=== PATIENT | female | born 1950 | race Caucasian/White ===

== ENCOUNTER 2022-04-19 10:02 | Outpatient (REF) | payer MEDICARE, MEDICAID, SELFPAY ==
[2022-05-16 09:06] LABS: Fungus Smear No Fungi Seen
== END 2022-04-19 10:03 | disposition home or self-care (01) ==
LOC: LBN 10:02
PROVIDERS: PCP Nurse Practitioner Family; Visit Provider Student in an Organized Health Care Education/Training Program
DX: R93.89 Abnormal findings on diagnostic imaging of other specified body structures (principal); R91.1 Solitary pulmonary nodule; R06.02 Shortness of breath; J43.8 Other emphysema; J06.9 Acute upper respiratory infection, unspecified
CPT/HCPCS: 87102; 87116; 87206; 87070; 87205

== ENCOUNTER 2022-04-20 14:46 | Outpatient (REF) | payer MEDICARE, SELFPAY | END 2022-04-20 14:47 | disposition home or self-care (01) | LOC: LBN 14:46 | PROVIDERS: PCP Nurse Practitioner Family; Visit Provider Student in an Organized Health Care Education/Training Program | DX: R93.89 Abnormal findings on diagnostic imaging of other specified body structures (principal); J06.9 Acute upper respiratory infection, unspecified; J98.4 Other disorders of lung | CPT/HCPCS: 87116; 87206 ==

== ENCOUNTER 2022-04-24 01:52 | Outpatient (CLI) | payer MEDICARE, MEDICAID, SELFPAY ==
--- NOTE | 2022-04-24 07:15 | DI.CT_ITS ---
Exam(s) CT CHEST WO EXAM: CT CHEST WO CLINICAL HISTORY: f/u nodular infiltrates,PULMONARY NODULES,R91.8 TECHNIQUE: Imaging Protocol: Axial computed tomography images with coronal and sagittal reformatted images were created and reviewed CONTRAST MATERIAL: Intravenous: Omnipaque 350 Contrast volume:structured data ml. COMPARISON: CT CT CHEST WO CNTRST from 12/15/2021 FINDINGS: Pulmonary parenchyma: Mild emphysematous changes. Mild peripheral basal scarring. Scarring lingula, adjacent to heart. No consolidation. No dominant measurable mass. Tracheobronchial tree: No bronchiectasis or mucous plugging. Mediastinum and Carin: No dominant adenopathy or fluid collection. Pleura: No effusion or pneumothorax. Heart: The heart is not dilated. coronary artery calcifications are seen. Aorta: Thoracic aorta non-dilated. Atherosclerotic changes. Upper abdomen: Unremarkable. Bones: Degenerative changes. Soft tissues: Unremarkable. IMPRESSION: No infiltrates or suspicious pulmonary nodules identified. RADIATION DOSE DELIVERED: 364.58mGy.cm Total DLP DATA REPOSITORY: All CT scans at this facility are submitted to the National Radiology Data Registry (NRDR) Dose Index Registry (DIR) with the [employer] (ACR). RADIATION OPTIMIZATION: All CT scans at this facility use at least one of these dose optimization te chniques: automated exposure control; mA and/or kV adjustment per patient size (includes targeted exa ms where dose is matched to clinical indication); or iterative reconstruction.
== END 2022-04-24 02:12 ==
LOC: DI 01:53
PROVIDERS: PCP Nurse Practitioner Family; Visit Provider Student in an Organized Health Care Education/Training Program
DX: R91.8 Other nonspecific abnormal finding of lung field (principal); J43.8 Other emphysema; J98.4 Other disorders of lung
CPT/HCPCS: 71250; 94060; 94726; 94729

== ENCOUNTER 2022-04-24 04:21 | Outpatient (CLI) | payer MEDICARE, MEDICAID, SELFPAY ==
[2022-04-24] MEDS: Inhaler, Assist Device 1 EACH MC (11:09)
[2022-04-24] MEDS: Albuterol HFA 18 GM 200 PUFF INH IH (11:09)
--- NOTE | 2022-04-24 12:00 | W.PFT ---
Date of service: 04/24/22 Time of Service: 10:08 Pulmonary Function Test Result Requesting Provider [place] Indications: Dyspnea Interpretation Spirometry: There is severe airflow limitation. There is no significant bronchodilator response. Lung Volumes: There is air trapping Diffusion Capacity: There is a significantly decreased diffusion Airway Pressure: Increased airways resistance. Impression Severe airflow obstruction with air trapping and a decreased diffusion. Clinical Correlation therefore is recommended.
== END 2022-04-24 04:22 | disposition home or self-care (01) ==
LOC: RT 04:21
PROVIDERS: PCP Nurse Practitioner Family; Visit Provider Student in an Organized Health Care Education/Training Program
DX: R06.02 Shortness of breath (principal)
CPT/HCPCS: 94060; 94726; 94729

== ENCOUNTER → 2022-12-20 13:41 | Outpatient (BNVA) | payer MEDICARE, MEDICAID, SELFPAY | PROVIDERS: PCP Nurse Practitioner Family; Referring Provider Nurse Practitioner Family; Visit Provider Physician Assistant Surgical | DX: J44.9 Chronic obstructive pulmonary disease, unspecified (principal); Z79.51 Long term (current) use of inhaled steroids; I27.20 Pulmonary hypertension, unspecified; Z87.891 Personal history of nicotine dependence; J96.91 Respiratory failure, unspecified with hypoxia | CPT/HCPCS: 99214 ==

== ENCOUNTER → 2023-01-12 00:08 | Outpatient (CLI) | payer MEDICARE, MEDICAID, SELFPAY ==
--- NOTE | 2023-01-12 16:05 | DI.US_ITS ---
APPROVED REPORT EXAM: Comprehensive 2D, Doppler, and color-flow Echocardiogram Patient Location: Out-Patient Funeral Director/Embalmer/Owner: Shari Martinez RDCS (AE) Indications: Increased SOB, edema, Pulmonary HTN Other Information Study Quality: Adequate. Technically limited study due to body habitus. Conclusion Normal left ventricular wall thickness and chamber size. Ejection fraction is 50 to 55%. There are no segmental wall motion abnormalities Normal right ventricular size and systolic function Atria are normal in size. The atrial septum is thin and hypermobile There is no structural or hemodynamically significant valvular disease Estimated right ventricular systolic pressure is 35 mmHg Wall motion Left Ventricle The left ventricle is normal size. Left ventricular systolic function is lborderline normal. There is normal left ventricular wall thickness. There is normal LV segmental wall motion. There is no ventri cular septal defect visualized. LVEF is 52%. Right Ventricle The right ventricle is normal size. The right ventricular systolic function is normal. Atria The left atrium size is normal. The right atrium size is normal. Atrial septal aneurysm is present. Aortic Valve The aortic valve is normal in structure. Aortic valve is trileaflet. There is no aortic valvular sten osis. No aortic regurgitation is present. Mitral Valve The mitral valve is normal in structure. No evidence of mitral valve stenosis. Trace mitral regurgita tion. Tricuspid Valve The tricuspid valve is normal in structure. There is no tricuspid valve stenosis. Trace tricuspid reg urgitation. The RVSP is 35.3mmHg. Pulmonic Valve The pulmonary valve is normal in structure. There is no pulmonic valvular stenosis. Trace pulmonic re gurgitation. Great Vessels The aortic root is normal in size. The ascending aorta is normal in size. Aortic arch is not well vis ualized. IVC is normal in size and collapses >50% with inspiration. Pericardium Trace pericardial effusion. 2D Dimensions IVSD d PLAX 0.67 cm F: 0.6-1.0 Ao Root d 2.83 cm F: 2.7 - 3.3 LVPW d PLAX 0.68 cm F: 0.6 - 1.0 Ao Asc Diam d 2.85 cm F: 2.3 - 3.1 LVID d PLAX 4.51 cm F: 3.8 - 5.2 LVDs 3.25 cm F: 2.2 - 3.5 LV EF Teichholz 54.4 % FS 28.04 % LV EDV (Teich) 92.9 mL LV ESV (Teich) 42.4 mL M-Mode TAPSE 2.36 cm (M/F) >1.7 Auto EF LV EDV A4C 71.6 mL LV EDV A2C 89.5 mL LV EDV BP 80.6 mL LV ESV A4C 37.6 mL LV ESV A2C 44.8 mL LV ESV BP 40.3 mL LVEF(%) A4C 47.5 % LVEF(%) A2C 49.9 % LVEF(%) BP 50.0 % LV SV A4C 34.0 ml LV SV A2C 44.6 ml LV SV BP 40.3 ml LV CO A4C 2.4 L/min LV CO A2C 3.3 L/min LV CO BP 2.8 L/min HR A4C 70.18 BPM HR A2C 73.59 BPM LV EDV Index (BP) LV Strain Long Pk Overal Avg (s) 15.01 LA Volume LA Length A4C 4.8 cm LA Length A2C 4.8 cm LA Area A4C s 13.06 cm2 LA Area A2C s 17.24 cm2 LA Vol A4C A-L 29.97 mL LA Vol A2C A-L 52.90 mL LA Vol Biplane A-L 40.1 mL LA Vol/BSA A4C A-L LA Vol/BSA A2C A-L LA Vol/BSA BP A-L 24.3 mL/m2 LA Vol A4C MOD 28.4 mL LA Vol A2C MOD 50.0 mL LA Vol BP MOD 37.6 mL RA Volume RA Area A4C 13.0 cm2 RA ESV A4C (A-L) 31.6mL RA Vol/BSA A4C A-L RA Length A4C 4.6 cm RA ESV A4C (MOD) 30.7mL LV Diastology MV E' medial 0.088 (>0.07 m/s) MV E Vmax 0.76 (0.4-1.3 m/s) MV E/E' MED 8.57 (<14) MV A Vmax 0.90 (0.4-1.3 m/s) MV E' lateral 0.106 (>0.1 m/s) E/A Ratio 0.8 MV E/E' LAT 7.13 (<14) MV E' Average 0.097 m/s MV E/E'(average) 7.78 Aortic Valve AoV Vmax 1.39 m/s LVOT Vmax 1.06 m/s AoV Peak Grad 7.7 mmHg LVOT Peak Grad 4.5 mmHg AoV Area (Vmax) 2.32 cm2 LVOT VTI 0.241 m AoV VTI 0.310 m LVOT Mean Grad 2.3 mmHg AoV Mean Gama. 0.91 m/s LVOT SV 73.50 mL AoV Mean Grad 3.8 mmHg LVOT Diam s 1.95 cm AoV Area (VTI) 2.37 cm2 Velocity Ratio 0.76 Mitral Valve MV DT 293 (160-240 msec) MV Vmax TIPS 0.93 m/s MV Mean Grad 1.4 (<2mmHg) MV VTI 0.264 m Pulmonary Valve PV Vmax 1.30 (0.5-1.5 m/s) RVOT Vmax 0.69 m/s PV Peak Grad 6.7 mmHg RVOT Peak Gr. 1.9 mmHg PV Mean Gama 0.85 m/s RVOT VTI 0.147 m PV Mean Grad 3.3 mmHg RVOT Mean Gr. 0.9 mmHg Tricuspid Valve RA Pressure 3.00 mmHg TR Vmax 2.84 m/s TV S' 0.16 m/s TR Peak Grad 32.2 mmHg RVSP (TR) 35.3 mmHg
== END ==
PROVIDERS: PCP Nurse Practitioner Family; Visit Provider Physician Assistant Surgical
DX: I27.20 Pulmonary hypertension, unspecified (principal)
CPT/HCPCS: 93306

== ENCOUNTER 2023-04-08 09:06 | Inpatient (IN) | payer MEDICARE, MEDICAID, SELFPAY ==
[2023-04-08] VITALS (15 sets, daily range): BP systolic 139–180; BP diastolic 79–91; PULSE 86–104; RESP 5–24; TEMP 36.5–37.4; O2SAT 88–98
--- NOTE | 2023-04-08 09:00 | DI.RAD_ITS ---
Exam(s) XR PORTABLE CHEST AP EXAM: XR PORTABLE CHEST AP CLINICAL HISTORY: dyspnea TECHNIQUE: 2D digital imaging was performed of the chest. One image was obtained. An AP view was ob tained. COMPARISON: DX XR CHEST 1 VIEW from 11/18/2021 FINDINGS: MEDIASTINUM: Normal. HEART: Normal. PULMONARY VASCULATURE: Normal. LUNGS: The lungs are hyperinflated suggesting underlying COPD. Stable fibrotic changes are seen in t he lungs. No focal consolidating infiltrate. PLEURAL SPACE: No pleural effusion or pneumothorax. BONE:Within normal limits for the patient's age. OTHER FINDINGS:Normal. IMPRESSION: No acute pulmonary findings. DATA REPOSITORY: RADIATION DOSE DELIVERED:
--- NOTE | 2023-04-08 09:00 | RT.EKG_ITS ---
APPROVED REPORT Exam: Resting ECG Reason for Exam: shortness of breath Patient Location: E HR:89 bpm ECG Measurements Heart Rate 89 AXIS W[place] 122 P 0 QRSd 97 QRS -61 QT 360 T 51 QTc 438 Conclusion Sinus rhythm...normal P axis, V-rate 60- 99 Left anterior fascicular block...axis(240,-40), init forces inf
--- NOTE | 2023-04-08 09:29 | ED.GENADUL_ITS ---
HPI General Mode of arrival: EMS . Date/Time Provider Initiated Documentation: 04/08/23 09:09 . Limitations to Documentation: no limitations . Information obtained by: patient . History of Present Illness 72 year old F presents to the emergency department with the chief complaint of Shortness of breath, described as moderate, Patient started experiencing this day(s) (3) and it has been constant. Rest improves symptom(s), Movement worsens symptoms . Patient notes cough; denies chest pain and fever/chills. Related Data Home Medications Medication Instructions Recorded Confirmed amlodipine 5 mg tablet 5 mg PO DAILY 03/13/22 12/20/22 budesonide-formoterol HFA 160 2 puff inhalation BID 03/13/22 12/20/22 mcg-4.5 mcg/actuation aerosol inhaler guaifenesin 600 mg tablet, 600 mg PO Q12H PRN 03/13/22 12/20/22 extended release 12 hr Oxygen 06/23/22 12/20/22 albuterol sulfate 90 mcg/actuation 2 puff inhalation Q6H PRN 07/11/22 12/20/22 aerosol inhaler (Ventolin HFA) shortness of breath or wheezing #8.5 grams alendronate 70 mg tablet (Fosamax) 70 mg PO QWEEK 12/20/22 12/20/22 ipratropium 0.5 mg-albuterol 3 mg 3 ml inhalation QID PRN #540 mL 12/20/22 12/20/22 (2.5 mg base)/3 mL nebulization soln tiotropium bromide 2.5 See Rx Instructions .Route 02/26/23 mcg/actuation mist for inhalation .COMPLEX #4 grams (Spiriva Respimat) levofloxacin 750 mg tablet 750 mg PO DAILY #5 tabs 04/08/23 Previous Rx's Medication Instructions Recorded albuterol sulfate 90 mcg/actuation 2 puff inhalation Q6H PRN 07/11/22 aerosol inhaler (Ventolin HFA) shortness of breath or wheezing #8.5 grams ipratropium 0.5 mg-albuterol 3 mg 3 ml inhalation QID PRN #540 mL 12/20/22 (2.5 mg base)/3 mL nebulization soln tiotropium bromide 2.5 See Rx Instructions .Route 02/26/23 mcg/actuation mist for inhalation .COMPLEX #4 grams (Spiriva Respimat) levofloxacin 750 mg tablet 750 mg PO DAILY #5 tabs 04/08/23 Allergies Allergy/AdvReac Type Severity Reaction Status Date / Time hay/grass Allergy Unknown watery Uncoded 12/20/22 13:44 eyes, runny nose General Stated Complaint: RespSymp SRIDHAR: 3 Review of Systems All systems reviewed & are unremarkable except as noted in HPI and below Constitutional Constitutional: Denies chills, Denies fever(s) and Denies weakness Cardiovascular Cardiovascular: Denies chest pain and Reports dyspnea Respiratory Respiratory: Reports cough and Reports dyspnea Gastrointestinal Gastrointestinal: Denies abdominal pain, Denies nausea and Denies vomiting Genitourinary Genitourinary: Denies dysuria Musculoskeletal Musculoskeletal: Denies joint swelling Integumentary/Breasts Skin/Breast: Denies rash Neurologic Neurologic: Denies weakness Exam Const General: no acute distress Orientation: alert HENMT Head: normal to inspection Ears: external ears normal General nose exam: external nose normal Mouth: moist mucous membranes Eyes General: appearance normal, both eyes and all related structures Neck Neck: normal visual inspection Resp Auscultation: wheezes Cardio Rate: regular rate Skin General skin exam: no rashes or lesions noted Neuro General: patient alert and patient oriented x3 Extrem General: normal to inspection Psych Mental Status: mental status grossly normal Course Vital Signs Vital signs: Vital Signs Temperature 36.6 C 04/08/23 09:15 Pulse 100 H 04/08/23 09:15 Blood Pressure 153/81 H 04/08/23 09:15 Pulse Oximetry 96 04/08/23 09:15 Temperature 36.6 C 04/08/23 09:15 Pulse 100 H 04/08/23 09:15 Blood Pressure 153/81 H 04/08/23 09:15 Blood Pressure Position Sitting 04/08/23 09:15 Pulse Oximetry 96 04/08/23 09:15 Oxygen Delivery Method Aerosol Mask 04/08/23 09:15 Comment always on 2LPM of O2 04/08/23 09:15 Lab/Test Results Lab/Test Results: 04/08/23 09:00 Blood Blood Culture - Pending 04/08/23 09:00 Blood Blood Culture - Pending Medical Decision Making 72-year-old female with a history of asthma and COPD overlap syndrome who sees pulmonology and is on oxygen daily, comes in with chief complaint of 3 days worth of worsening shortness of breath and productive cough. She denies any chest pain or fevers. She was put on prednisone and azithromycin on Sunday but despite this is having worsening shortness of breath so called EMS who gave her some DuoNebs and she is feeling mildly better. She is able to speak in 5-6 word sentences, has diffuse wheezing in all lung soria bilaterally, no JVD, no leg swelling or calf tenderness. Her exam and history is consistent with likely COPD exacerbation, will treat with another DuoNeb and Solu-Medrol, and obtain EKG/troponin, CBC, CMP and chest x-ray and reassess. Does not appear volume overloaded so doubt CHF and has no calf tenderness, no pleuritic chest pain, no significant tachycardia to suggest PE Patient feeling better, still has some wheezing in the apices will order another breathing treatment, will also switch her from azithromycin to levofloxacin. Will attempt ambulation trial Pt became dyspneic just trying to get out of the bed to the commode and was tachypneic and had a desaturation to 86% despite being on oxygen, was not comfortable going home at this point and given her work of breathing with minimal exertion feel it is reasonable to admit. Will discuss with hospitalist about possible admission for continued COPD treatment Differential Diagnosis Differential Diagnosis: COPD, pneumonia, COVID Medical Records Medical records reviewed: Yes I reviewed the patient's medical records. Imaging Data Radiologic Study: Attestation: I personally reviewed and interpreted this imaging study as follows: Imaging: X-Ray Radiologist's impression: No acute findings Lab Data Lab results reviewed: Yes I reviewed the patient's lab results. ECG Data Attestation: I personally reviewed and interpreted this ECG (s) as follows: Prior ECG tracings: not available for review Interpretation: Sinus rhythm, rate 89, [place] 122, no STEMI Quality:SDOH Health Related Social Needs: No Data to Display PFSH All Active Problems (Updated 04/08/23 @ 11:09 by Pj Lozoya MD) Asthma exacerbation in COPD (Acute) Respiratory failure with hypoxia (Acute) Asthma-COPD overlap syndrome (Acute) Abnormal chest CT (Acute) Shortness of breath (Acute) Medical History (Updated 04/08/23 @ 11:09 by Pj Lozoya MD) Personal history of nicotine dependence Solitary pulmonary nodule Social History (Updated 03/24/22 @ 10:00 by Dara Almanza RN) Smoking/Tobacco Use Status: Former Tobacco Use Smoking risk assessment performed?: Yes Housing: house Do you feel safe at home: Yes Do you feel safe in your relationship?: Yes Discharge Plan Disposition Patient Disposition: Admit to [facility] Condition: Stable Discharge Details Clinical Impression: Asthma exacerbation in COPD Primary Care Provider: Monique Clark ED Provider: Pj Lozoya Home Meds and New Rx's Prescriptions: New levofloxacin 750 mg tablet 750 mg PO DAILY Qty: 5 0RF Continued alendronate [Fosamax] 70 mg tablet 70 mg PO QWEEK ipratropium-albuterol 0.5 mg-3 mg(2.5 mg base)/3 mL solution for nebulization 3 ml inhalation QID PRN Qty: 540 6RF guaifenesin 600 mg tablet extended release 12hr 600 mg PO Q12H PRN budesonide-formoterol 160-4.5 mcg/actuation HFA aerosol inhaler 2 puff inhalation BID amlodipine 5 mg tablet 5 mg PO DAILY (DME) Oxygen Tank See Rx Instructions .Route Patient Comments: Patient only using 1L via [place] Rx Instructions: As directed, 1LPM, BY NASAL CANNULA NEEDED. albuterol sulfate [Ventolin HFA] 90 mcg/actuation HFA aerosol inhaler 2 puff inhalation Q6H PRN (Reason: shortness of breath or wheezing) Qty: 8.5 12RF Spiriva Respimat 2.5 mcg/actuation mist See Rx Instructions .ROUTE .COMPLEX Qty: 4 12RF Dose Instruction: INHALE TWO PUFFS BY MOUTH DAILY Rx Instructions: INHALE TWO PUFFS BY MOUTH DAILY
[2023-04-08] MEDS: Normal Saline 1,000 ML 1000 ML IV (09:42)
[2023-04-08 09:49] LABS: Source Nasal/Nares
[2023-04-08] MEDS: Normal Saline Flush 10 ML SYR IVP ×3 (09:49→21:12)
[2023-04-08] MEDS: methylPREDNISolone SUCC 125 MG VIAL IVP (09:49)
[2023-04-08] MEDS: Albuterol/Ipratropium 3 ML UPD VIAL UPD ×2 (09:52→11:27)
[2023-04-08 10:06] LABS: BE (Venous) 5 mmol/L (-2-3); HCO3 (Venous) 30 mmol/L (23-28); O2 Sat (Venous) 92 %; TCO2 (Venous) 27 mmol/L (24-29); pCO2 (Venous) 51 mmHg (41-51); pH (Venous) 7.38 (7.31-7.41); pO2 (Venous) 57 mmHg
[2023-04-08 10:21] LABS: Abs Immature Grans 0.03 10^3/uL (0.0-0.06); Absolute Basophil Count 0.02 10^3/uL (0.0-0.2); Absolute Eosinophil Count 0.02 10^3/uL (0.0-0.7); Absolute Lymphocyte Count 0.53 10^3/uL (1.2-3.4); Absolute Monocyte Count 0.43 10^3/uL (0.1-0.8); Absolute Neutrophil Count 5.33 10^3/uL (1.2-6.7); Basophils % 0.3; Eosinophils % 0.3; HCT 41.1 % (36.0-46.0); HGB 13.5 g/dL (11.2-15.7); Immature Grans % 0.5; Lymphocytes % 8.3; MCH 28.1 pg (27.0-33.0); MCHC 32.8 % (32.0-36.0); MCV 85 fL (80-95); Monocytes % 6.8; Neutrophils % 83.8; RBC 4.81 10^6/uL (3.93-5.22); RDW 13.3 % (11.7-14.6); RDW-SD 41.9 fL; WBC 6.36 10^3/uL (4.4-10.8)
[2023-04-08 10:37] LABS: COVID-19 PCR Negative (Negative)
[2023-04-08 10:42] LABS: ALT 30 U/L (14-59); AST 33 U/L (15-37); Albumin 3.9 g/dL (3.4-5.0); Alkaline Phosphatase 81 U/L (46-116); Anion Gap 9.7 mmol/L (3-11); BUN 16 mg/dL (7-18); Bilirubin, Total 0.6 mg/dL (0.2-1.0); CO2 29.3 mmol/L (21.0-32.0); CREATININE 0.4 mg/dL (0.55-1.02); Calcium 8.4 mg/dL (8.5-10.1); Chloride 93 mmol/L (98-107); Estimated GFR 105.75 (mL/min/1.73m2); Glucose 128 mg/dL (74-106); NT-proBNP 261 pg/mL (<300); Potassium 3.6 mmol/L (3.5-5.1); Sodium 132 mmol/L (136-145); TSH (W/Ref FT4) 1.41 uIU/mL (0.36-3.74); Total Protein 7.1 g/dL (6.4-8.2); Troponin I < 50 ng/L (< or =60)
--- NOTE | 2023-04-08 10:52 | DI.VRAD_ITS ---
PROCEDURE INFORMATION: Exam: XR Chest Exam date and time: 04/08/2023 10:34 AM Age: 72 years old Clinical indication: Other: Dyspnea TECHNIQUE: Imaging protocol: Radiologic exam of the chest. Views: 1 view. COMPARISON: CT CHEST WO 04/24/2022 11:16 AM FINDINGS: Lungs: Hyperinflated emphysematous lungs. There is bilateral apical fibrotic changes. Reticular interstitial changes both lung bases. No focal consolidation. Pleural spaces: Unremarkable. No pleural effusion. No pneumothorax. Heart/Mediastinum: Unremarkable. No cardiomegaly. Bones/joints: Mild degenerative disease of both acromioclavicular joints. IMPRESSION: Emphysematous changes with no focal consolidation. Dictated and Authenticated by: Alec Santamaria MD. Ordering:GUILLERMINA Oliva MD
[2023-04-08 10:57] LABS: Diff Comment Diff Reviewed; RBC Morphology Normal
[2023-04-08 11:16] LABS: Procalcitonin < 0.1 ng/mL
[2023-04-08] MEDS: levoFLOXacin 500 MG, levoFLOXacin 250 MG 750 MG PO (11:26)
[2023-04-08] MEDS: Normal Saline 250 ML 500 ML IV (12:17)
--- NOTE | 2023-04-08 13:21 | W.PM.HP.N ---
Date of service: 04/08/23 Time of Service: 13:21 Assessment and Plan Assessment and plan (1) Respiratory failure with hypoxia: Status: Acute Assessment and plan: Will be admitted to the medical surgical unit for COPD exacerbation with asthma overlap. Received IV steroids in the emergency department will resume steroid burst in the morning. Continue scheduled updrafts and home inhalers. Antibiotics broadened to levofloxacin daily. Consider pulmonology consultation in the a.m. if necessary (2) Asthma exacerbation in COPD: Status: Acute Assessment and plan: See above (3) GERD (gastroesophageal reflux disease): Status: Chronic Assessment and plan: Will schedule pantoprazole while hospitalized for GI prophylaxis can have Tums or Mylanta as needed (4) Headache: Status: Acute Assessment and plan: Reports typical for her will place as needed acetaminophen and ibuprofen order continue to monitor (5) On deep vein thrombosis (DVT) prophylaxis: Status: Acute Assessment and plan: Teds and enoxaparin (6) Discharge planning issues: Status: Acute Assessment and plan: Anticipated discharge to home with no new services once medically stable discussed with DR Davis History of Present Illness History of Present Illness Chief Complaint: shortness of breath Narrative: This is a 72-year-old female patient history of of asthma COPD overlap syndrome followed by pulmonology on home oxygen comes in with 3 days of worsening shortness of breath and productive cough. She was placed on prednisone and azithromycin outpatient on Sunday but did not have improvement in her symptoms she did summons EMS to bring her to the emergency department. They did give her a DuoNeb which initially she felt better still having significant shortness of breath diffuse wheezing so transported to the emergency department for evaluation she was given IV steroids additional updrafts. Her workup was not concerning for CHF or PE. Her antibiotics were broadened to levo floxacillin she will be admitted under hospitalist services for ongoing hypoxia and symptoms for further inpatient management. Review of Systems All systems reviewed & are unremarkable except as noted in HPI and below PFSH All Active Problems (Updated 04/08/23 @ 17:23 by Mahsa Sena NP) Discharge planning issues (Acute) On deep vein thrombosis (DVT) prophylaxis (Acute) Headache (Acute) GERD (gastroesophageal reflux disease) (Chronic) Asthma exacerbation in COPD (Acute) Respiratory failure with hypoxia (Acute) Asthma-COPD overlap syndrome (Acute) Abnormal chest CT (Acute) Shortness of breath (Acute) Medical History (Updated 04/08/23 @ 17:23 by Mahsa Sena NP) Personal history of nicotine dependence Solitary pulmonary nodule Social History (Updated 03/24/22 @ 10:00 by Dara Almanza RN) Smoking/Tobacco Use Status: Former Tobacco Use Smoking risk assessment performed?: Yes Housing: house Do you feel safe at home: Yes Do you feel safe in your relationship?: Yes Meds Allergies and Home Medications Allergies Allergy/AdvReac Type Severity Reaction Status Date / Time hay/grass Allergy Unknown watery Uncoded 12/20/22 13:44 eyes, runny nose Home Medications Medication Instructions Recorded Confirmed Type amlodipine 5 mg tablet 5 mg PO DAILY 03/13/22 04/08/23 History budesonide-formoterol HFA 160 2 puff inhalation BID 03/13/22 04/08/23 History mcg-4.5 mcg/actuation aerosol inhaler guaifenesin 600 mg tablet, 600 mg PO Q12H PRN 03/13/22 04/08/23 History extended release 12 hr Oxygen 06/23/22 04/08/23 History albuterol sulfate 90 mcg/actuation 2 puff inhalation Q6H PRN 07/11/22 04/08/23 Rx aerosol inhaler (Ventolin HFA) shortness of breath or wheezing #8.5 grams alendronate 70 mg tablet (Fosamax) 70 mg PO QWEEK 12/20/22 04/08/23 History ipratropium 0.5 mg-albuterol 3 mg 3 ml inhalation QID PRN #540 mL 12/20/22 04/08/23 Rx (2.5 mg base)/3 mL nebulization soln tiotropium bromide 2.5 See Rx Instructions .Route 02/26/23 04/08/23 Rx mcg/actuation mist for inhalation .COMPLEX #4 grams (Spiriva Respimat) azithromycin 250 mg tablet mg 04/08/23 History levofloxacin 750 mg tablet 750 mg PO DAILY #5 tabs 04/08/23 Rx prednisone 20 mg tablet mg 04/08/23 History Exam Const General: cooperative, comfortable, in distress mild and respiratory and ill appearing chronically Nutritional Appearance: average body habitus Orientation: alert, awake and oriented x3 HENMT Head: normal to inspection Mouth: oral mucosae normal Eyes General: appearance normal, both eyes and all related structures Neck Neck: normal visual inspection and full ROM Chest Chest: normal inspection of the chest Resp Effort & Inspection: tachypneic Auscultation: wheezes Cardio Rate: regular rate GI Inspection: normal to inspection Skin General skin exam: no rashes or lesions noted Neuro General: patient alert, patient awake and patient oriented x3 Extrem General: normal to inspection and full ROM Psych Mental Status: mental status grossly normal Results Labs 04/08/23 10:00 04/08/23 10:00 Labs: Laboratory Results - last 24 hr 04/08/23 04/08/23 09:28 10:00 WBC 6.36 RBC 4.81 Hgb 13.5 Hct 41.1 MCV 85 MCH 28.1 MCHC 32.8 RDW 13.3 Plt Count MPV Immature Gran % 0.5 Neutrophils % 83.8 Lymphocytes % 8.3 Monocytes % 6.8 Eosinophils % 0.3 Basophils % 0.3 Nucleated RBC % 0.0 Absolute Neutrophils 5.33 Absolute Lymphocytes 0.53 L Absolute Monocytes 0.43 Absolute Eosinophils 0.02 Absolute Basophils 0.02 RBC Morphology Normal VBG pH 7.38 VBG pCO2 51 VBG pO2 57 VBG HCO3 30 H VBG Total CO2 27 VBG O2 Saturation 92 VBG Base Excess 5 H Sodium 132 L Potassium 3.6 Chloride 93 L Carbon Dioxide 29.3 Anion Gap 9.7 BUN 16 Creatinine 0.4 L Est GFR (CKD-EPI 2020) 105.75 Glucose 128 H Calcium 8.4 L Magnesium 2.0 Total Bilirubin 0.6 AST 33 ALT 30 Alkaline Phosphatase 81 Troponin I < 50 NT-Pro-B Natriuret Pep 261 Total Protein 7.1 Albumin 3.9 Procalcitonin < 0.1 TSH 1.41 COVID-19 Source Nasal/Nares SARS-CoV-2 (PCR) Negative Last Vital Signs Temp 36.6 C 04/08/23 09:15 Pulse 86 04/08/23 09:52 Resp 18 04/08/23 09:52 BP 139/88 04/08/23 09:30 Pulse Ox 94 04/08/23 09:52 Time Spent Time spent with Patient: 40-54 minutes Time was spent: preparing to see the patient(eg.review tests), obtaining and/or reviewing separately otained hiistory, ordering medications,tests, procedures, indepentently interpreting results and counseling the patient
[2023-04-08 13:42] LABS: Troponin I < 50 ng/L (< or =60)
[2023-04-08] MEDS: amLODIPine 5 MG TAB PO (15:38)
[2023-04-08] MEDS: Albuterol/Ipratropium 3 ML UPD VIAL IH ×2 (16:34→21:12)
--- NOTE | 2023-04-08 16:40 | RESPIRATORY ---
Patient wears 2L 02 at baseline. DME is [facility].
[2023-04-08] MEDS: Acetaminophen 325 MG TAB 650 MG PO (17:13)
[2023-04-08] MEDS: Calcium Carbonate *TUMS* 500 MG CHEW PO (17:14)
[2023-04-08] MEDS: Ketorolac 30 MG/ML VIAL IVP (17:33)
[2023-04-08] MEDS: Pantoprazole 40 MG VIAL IVP (17:33)
[2023-04-08] MEDS: Budesonide/Formoterol 160/4.5 6 GM 60 PUFF INH IH (21:12)
[2023-04-08] MEDS: guaiFENesin 600 MG TABCR PO (21:12)
[2023-04-09] VITALS (10 sets, daily range): BP systolic 149–167; BP diastolic 79–81; PULSE 77–121; RESP 2–18; TEMP 35.9–36.6; O2SAT 89–95
[2023-04-09] MEDS: Tiotropium Bromide-Respimat 10 PUFF INH 2 PUFF IH (09:13)
[2023-04-09] MEDS: Albuterol/Ipratropium 3 ML UPD VIAL IH ×4 (09:13→20:35)
[2023-04-09] MEDS: Budesonide/Formoterol 160/4.5 6 GM 60 PUFF INH IH ×2 (09:13→20:36)
[2023-04-09] MEDS: Normal Saline Flush 10 ML SYR IVP ×2 (09:18→21:35)
[2023-04-09] MEDS: Enoxaparin 40 MG/0.4 ML SYR SC (09:18)
[2023-04-09] MEDS: Pantoprazole 40 MG VIAL IVP (09:18)
[2023-04-09] MEDS: levoFLOXacin 500 MG, levoFLOXacin 250 MG 750 MG PO (09:19)
[2023-04-09] MEDS: predniSONE 20 MG TAB 40 MG PO (09:19)
[2023-04-09] MEDS: guaiFENesin 600 MG TABCR PO ×2 (09:19→21:35)
--- NOTE | 2023-04-09 10:31 | INITIAL_ITS ---
Date of service: 04/09/23 Time of Service: 10:31 Care Management Initial Assmt Initial Assessment REASON FOR HOSPITALIZATION:: Exacerbation of COPD PREVIOUS FUNCTIONAL STATUS/SOCIAL/FAMILY SUPPORTS:: Madina lives a single family home in [place], [place] with her daughter and son-in-law. She had 8 children but one when in her twenties. Marcie is retired but had many different positions throughout her life. One of her favorite jobs was working at the [employer] [place] in [place]. 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 Marcie has home oxygen at 2L/min most recently. She has had periods where she has only needed it at night. Marcie is independent at baseline and does not receive any community services. CURRENT FUNCTIONAL STATUS:: Marcie was sitting up in bed when CM met with her. She was pleasant and engaged well with CM . Marcie shared that she has been living with her daughter for the past year and a half, since her first hospitalization for respiratory issues. She reported that she has had Covid twice, once accompanied by pneumonia . In the process she was also diagnosed with COPDS and has since become oxygen dependent. Marcie expressed interest in completing advanced directives. CM supplied her with a blank copy of the [place] AD forms and offered to assist with their completion if needed. ADVANCE DIRECTIVES:: none Has patient been provided with info about the portal/API?: Yes Did the patient sign up for the portal?: No CODE STATUS:: Full Code INSURANCE COVERAGE / FINANCIAL ISSUES:: Medicare Medicaid ? PRIMARY CARE PHYSICIAN:: Monique Clark POTENTIAL DISCHARGE NEEDS:: follow up with PCP and plan of care PATIENT/FAMILY EDUCATION NEEDS:: Review of discharge instructions, medications, activity, limitations, follow up plan, discuss [employer] TRANSPORTATION:: via private vehicle with family PLAN:: Anticipate Madina will be discharged home with no new services when medically cleared. She will follow up with her PCP and plan of care and transport with family. CM will follow and continue to assess for discharge needs. PFSH All Active Problems (Updated 04/08/23 @ 17:23 by Mahsa Sena NP) Discharge planning issues (Acute) On deep vein thrombosis (DVT) prophylaxis (Acute) Headache (Acute) GERD (gastroesophageal reflux disease) (Chronic) Asthma exacerbation in COPD (Acute) Respiratory failure with hypoxia (Acute) Asthma-COPD overlap syndrome (Acute) Abnormal chest CT (Acute) Shortness of breath (Acute) Medical History (Updated 04/08/23 @ 17:23 by Mahsa Sena NP) Personal history of nicotine dependence Solitary pulmonary nodule Social History (Updated 03/24/22 @ 10:00 by Dara Almanza RN) Smoking/Tobacco Use Status: Former Tobacco Use Smoking risk assessment performed?: Yes Housing: house Do you feel safe at home: Yes Do you feel safe in your relationship?: Yes SDOH(Care Management) Screening Will the Patient Participate in the Screening?: Yes Do you worry about having a steady place to live?: no Problems where you live: no known problems In the past 12 months, have you had to go without electric, gas, oil or water in your home?: no Have you or anyone in your house had to go without enough food to eat?: no Has lack of transportation kept you from medical appointments or from doing things needed for daily living?: no Has anyone in your support network made you feel unsafe for any reason?: no
--- NOTE | 2023-04-09 11:43 | W.PM.PROGNOT ---
Date of Service Date of service: 04/09/23 Time of Service: 11:43 Assessment and Plan Assessment and plan (1) Respiratory failure with hypoxia: Status: Acute Assessment and plan: improving with current treatment. Continue scheduled updrafts and home inhalers, levofloxacin day 2/7 and steroids, may require slow taper at discharge. (2) Asthma exacerbation in COPD: Status: Acute Assessment and plan: See above (3) GERD (gastroesophageal reflux disease): Status: Chronic Assessment and plan: Will schedule pantoprazole while hospitalized for GI prophylaxis can have Tums or Mylanta as needed (4) Headache: Status: Acute Assessment and plan: Reports typical for her will place as needed acetaminophen and ibuprofen order continue to monitor (5) On deep vein thrombosis (DVT) prophylaxis: Status: Acute Assessment and plan: Teds and enoxaparin (6) Discharge planning issues: Status: Acute Assessment and plan: Anticipated discharge to home with no new services once medically stable discussed with DR Davis Subjective Subjective Patient reports: no new complaints, feels better, tolerating liquids well, tolerating a regular diet, shortness of breath (closer to baseline) and afebrile Interval history since last seen: at baseline oxygen, shortness of breath markedly improved. Exam Const General: cooperative, comfortable and ill appearing chronically Nutritional Appearance: average body habitus Orientation: alert, awake and oriented x3 HENMT Head: normal to inspection Mouth: oral mucosae normal Eyes General: appearance normal, both eyes and all related structures Neck Neck: normal visual inspection and full ROM Chest Chest: normal inspection of the chest Resp Effort & Inspection: normal respiratory effort and able to speak in complete sentences Auscultation: no rhonchi and wheezes (better air exchange, ) Cardio Rate: regular rate GI Inspection: normal to inspection Skin General skin exam: no rashes or lesions noted Neuro General: patient alert, patient awake and patient oriented x3 Extrem General: normal to inspection and full ROM Psych Mental Status: mental status grossly normal Objective Last Vital Signs Temp 35.9 C L 04/09/23 07:57 Pulse 121 H 04/09/23 09:28 Resp 18 04/09/23 09:28 BP 167/79 H 04/09/23 07:57 Pulse Ox 89 L 04/09/23 09:28 Laboratory Results - last 24 hr 04/08/23 13:16 Troponin I < 50 Time Spent with Patient Time Spent with Patient: 25-34 minutes Time was spent: preparing to see the patient(eg.review tests), ordering medications,tests, procedures, indepentently interpreting results and counseling the patient
[2023-04-09] MEDS: amLODIPine 5 MG TAB PO (12:46)
[2023-04-10] VITALS (8 sets, daily range): BP systolic 133–168; BP diastolic 73–90; PULSE 74–96; RESP 5–19; TEMP 36.4–37.3; O2SAT 91–95
[2023-04-10] MEDS: Pantoprazole 40 MG TABCR PO (07:56)
[2023-04-10] MEDS: Normal Saline Flush 10 ML SYR IVP ×2 (08:27→20:09)
[2023-04-10] MEDS: Budesonide/Formoterol 160/4.5 6 GM 60 PUFF INH IH ×2 (08:27→21:01)
[2023-04-10] MEDS: Tiotropium Bromide-Respimat 10 PUFF INH 2 PUFF IH (08:27)
[2023-04-10] MEDS: Enoxaparin 40 MG/0.4 ML SYR SC (08:28)
[2023-04-10] MEDS: predniSONE 20 MG TAB 40 MG PO (08:31)
[2023-04-10] MEDS: amLODIPine 5 MG TAB PO (08:31)
[2023-04-10] MEDS: guaiFENesin 600 MG TABCR PO ×2 (08:32→20:08)
[2023-04-10] MEDS: levoFLOXacin 500 MG, levoFLOXacin 250 MG 750 MG PO (08:36)
[2023-04-10] MEDS: Albuterol/Ipratropium 3 ML UPD VIAL IH ×3 (08:46→20:57)
[2023-04-10] MEDS: Docusate Sodium 100 MG CAP PO ×2 (13:43→20:08)
--- NOTE | 2023-04-10 15:09 | W.PM.PROGNOT ---
Date of Service Date of service: 04/10/23 Time of Service: 15:09 Assessment and Plan Assessment and plan (1) Respiratory failure with hypoxia: Status: Acute Assessment and plan: improving with current treatment. Continue scheduled updrafts and home inhalers, levofloxacin day 3/7 and steroids, may require slow taper at discharge. (2) Asthma exacerbation in COPD: Status: Acute Assessment and plan: See above (3) Constipation: Status: Acute Assessment and plan: add bowel management. (4) GERD (gastroesophageal reflux disease): Status: Chronic Assessment and plan: Will schedule pantoprazole while hospitalized for GI prophylaxis can have Tums or Mylanta as needed (5) Headache: Status: Acute Assessment and plan: Reports typical for her will place as needed acetaminophen and ibuprofen order continue to monitor (6) On deep vein thrombosis (DVT) prophylaxis: Status: Acute Assessment and plan: Teds and enoxaparin (7) Discharge planning issues: Status: Acute Assessment and plan: Anticipated discharge to home with no new services once medically stable discussed with DR Green Subjective Subjective Patient reports: no new complaints, feels better, tolerating liquids well, tolerating a regular diet, voiding w/o difficulty, no bowel movement, shortness of breath (improving) and afebrile Exam Const General: cooperative and comfortable Nutritional Appearance: average body habitus Orientation: alert, awake and oriented x3 HENMT Head: normal to inspection Mouth: oral mucosae normal Eyes General: appearance normal, both eyes and all related structures Neck Neck: normal visual inspection and full ROM Chest Chest: normal inspection of the chest Resp Effort & Inspection: normal respiratory effort and able to speak in complete sentences Auscultation: no rhonchi and wheezes (better air exchange, ) Cardio Rate: regular rate GI Inspection: normal to inspection Skin General skin exam: no rashes or lesions noted Neuro General: patient alert, patient awake and patient oriented x3 Extrem General: normal to inspection and full ROM Psych Mental Status: mental status grossly normal Objective Last Vital Signs Temp 36.8 C 04/10/23 11:26 Pulse 89 04/10/23 12:02 Resp 16 04/10/23 12:02 BP 147/76 H 04/10/23 11:26 Pulse Ox 91 L 04/10/23 12:02 Time Spent with Patient Time Spent with Patient: 25-34 minutes Time was spent: preparing to see the patient(eg.review tests), obtaining and/or reviewing separately otained hiistory, ordering medications,tests, procedures, indepentently interpreting results and counseling the patient
[2023-04-11] VITALS (12 sets, daily range): BP systolic 124–181; BP diastolic 70–77; PULSE 70–99; RESP 2–18; TEMP 36.4–36.5; O2SAT 93–98
[2023-04-11 06:51] LABS: Abs Immature Grans 0.04 10^3/uL (0.0-0.06); Absolute Basophil Count 0.02 10^3/uL (0.0-0.2); Absolute Eosinophil Count 0.01 10^3/uL (0.0-0.7); Absolute Lymphocyte Count 1.52 10^3/uL (1.2-3.4); Absolute Monocyte Count 0.77 10^3/uL (0.1-0.8); Absolute Neutrophil Count 4.79 10^3/uL (1.2-6.7); Basophils % 0.3; Eosinophils % 0.1; HCT 38.7 % (36.0-46.0); HGB 12.5 g/dL (11.2-15.7); Immature Grans % 0.6; Lymphocytes % 21.3; MCH 27.6 pg (27.0-33.0); MCHC 32.3 % (32.0-36.0); MCV 85 fL (80-95); MPV 9.7 fL (8.0-11.0); Monocytes % 10.8; Neutrophils % 66.9; Platelet Count 209 10^3/uL (130-400); RBC 4.53 10^6/uL (3.93-5.22); RDW 13.6 % (11.7-14.6); RDW-SD 42.7 fL; WBC 7.15 10^3/uL (4.4-10.8)
[2023-04-11 07:10] LABS: Anion Gap 4.2 mmol/L (3-11); BUN 22 mg/dL (7-18); CO2 33.8 mmol/L (21.0-32.0); CREATININE 0.6 mg/dL (0.55-1.02); Calcium 8.7 mg/dL (8.5-10.1); Chloride 103 mmol/L (98-107); Glucose 96 mg/dL (74-106); Potassium 3.6 mmol/L (3.5-5.1); Sodium 141 mmol/L (136-145)
[2023-04-11] MEDS: Enoxaparin 40 MG/0.4 ML SYR SC (07:52)
[2023-04-11] MEDS: guaiFENesin 600 MG TABCR PO ×2 (07:53→21:10)
[2023-04-11] MEDS: levoFLOXacin 500 MG, levoFLOXacin 250 MG 750 MG PO (07:55)
[2023-04-11] MEDS: Pantoprazole 40 MG TABCR PO (07:56)
[2023-04-11] MEDS: predniSONE 20 MG TAB 40 MG PO (07:57)
[2023-04-11] MEDS: Docusate Sodium 100 MG CAP PO ×2 (07:57→21:10)
[2023-04-11] MEDS: amLODIPine 5 MG TAB PO (07:57)
[2023-04-11] MEDS: Normal Saline Flush 10 ML SYR IVP ×2 (07:59→21:10)
[2023-04-11] MEDS: Albuterol/Ipratropium 3 ML UPD VIAL IH ×4 (08:10→20:11)
[2023-04-11] MEDS: Tiotropium Bromide-Respimat 10 PUFF INH 2 PUFF IH (08:12)
[2023-04-11] MEDS: Budesonide/Formoterol 160/4.5 6 GM 60 PUFF INH IH ×2 (08:12→20:12)
--- NOTE | 2023-04-11 10:00 | IN_ITS ---
PT Notes Visit Reasons: Copd Exacerbation, Hypoxic Respiratory Failure Physical Therapy Inpatient Initial Evaluation Date: 04/11/2023 Referring Doctor: Mahsa Sena NP PT Orders: PT CONSULT: Eval/Treat Precautions: Fall. Standard. Activity as tolerated. Patient Profile/Admitting Diagnosis: aMdina is a 72-year-old female admitted to the ED on 04/08/2022 due to shortness of breath. Patient is admitted for management of respiratory failure with hypoxia, asthma exacerbation and COPD, headache, and generalized weakness. PMHX: All Active Problems (Updated 04/08/23 @ 17:23 by Mahsa Sena NP) Discharge planning issues (Acute) On deep vein thrombosis (DVT) prophylaxis (Acute) Headache (Acute) GERD (gastroesophageal reflux disease) (Chronic) Asthma exacerbation in COPD (Acute) Respiratory failure with hypoxia (Acute) Asthma-COPD overlap syndrome (Acute) Abnormal chest CT (Acute) Shortness of breath (Acute) Medical History (Updated 04/08/23 @ 17:23 by Mahsa Sena NP) Personal history of nicotine dependence Solitary pulmonary nodule Social History/Home Situation: Will be staying with daughter on discharge. Independent with all aspects of ADLs without AD prior to admission. Equipment Owned/DME: None Subjective: Having a difficult time expelling excess secretion through nose, states that it does not feel loose enough as she hoped it should be. FOOD AND BEVERAGE ORDER CLERK Priscilla aware and prescribing saline spray. Denied headache, chest pain, and lightheadedness throughout session. Objective: General Observation: Sitting on bedside chair. On oxygen supplementation at 2 L/min via NC. Mental Status: Alert and oriented as to person, place, time, and purpose. Able to pay attention, focus, and respond appropriately. Pain: Denies Vital Signs: Oxygen saturation low of 86% on 2 L during ambulation but restaurated back to 88% in less than 2 minutes of rest ROM: Right Upper Extremity: Shoulder Flexion WFL. Shoulder abduction WFL. Elbow flexion WFL. Wrist flexion WFL. Functional opening and closing of hand WFL. Left Upper Extremity: Shoulder Flexion WFL. Shoulder abduction WFL. Elbow flexion WFL. Wrist flexion WFL. Functional opening and closing of hand WFL. Right Lower Extremity: Hip flexion WFL. Hip abduction WFL. Knee flexion WFL. Ank le dorsiflexion WFL. Ankle plantarflexion WFL. Left Lower Extremity: Hip flexion WFL. Hip abduction WFL. Knee flexion WFL. Ankle dorsiflexion WFL. Ankle plantarflexion WFL. Strength: Right Upper Extremity: Shoulder flexors 4/5. Shoulder abductors 4/5. Elbow flexors 5/5. Elbow extensors 5/5. Fire Truck Driver strong. Left Upper Extremity: Shoulder flexors 4/5. Shoulder abductors 4/5. Elbow flexors 5/5. Elbow extensors 5/5. Fire Truck Driver strong. Right Lower Extremity: Hip flexors 4/5. Hip abductors 4/5. Knee flexors 5/5. Knee extensors 4/5. Ankle dorsiflexors 4/5. Ankle plantarflexors 4/5. Left Lower Extremity: Hip flexors 4/5. Hip abductors 4/5. Knee flexors 5/5. Knee extensors 4/5. Ankle dorsiflexors 4/5. Ankle plantarflexors 4/5. Bed Mobility/Transfers: Minimal cueing provided for use of B hands as needed for support, movement sequence, and posture to reduce fall risk and minimize pain report Rolling independent Supine to sit independent Sit to supine independent Sit to stand supervision Stand to sit supervision Bed to reclining chair supervision Reclining chair to bed supervision Gait: Facilitated safe and correct performance of level surface ambulation covering a distance of 250 feet using no assistive device with oxygen saturation lowest of 86% on 2 L but 3 saturating back up to 88 with an 2 minutes of seated rest. Decreased sherine. Decreased arm swing. Cued patient to perform deep breathing exercises as needed to maximize ventilatory function during activity. Minimal shortness of breath, resolved with rest. Balance: Static Sitting: Normal Dynamic Sitting: Normal Static Standing: Good Dynamic Standing: Good Special Tests: Mobility Limitations Standardized Measure [facility]-PAC 6 clicks Basic Mobility Inpatient Short Form: Raw Score: 24 CMS Score: 0% deficit 4-stage Balance Test: Able to maintain feet together and semi-tandem for 10 seconds. Unable to maintain full tandem and one-legged stance for 10 seconds Informed Consent/Education: Patient was instructed in purpose of PT consult and plan of care. Agreeable to proceed with established PT POC to achieve personal goals. Assessment: Patient presents with clinical signs and symptoms consistent with current/admitting diagnoses that have resulted to mobility limitations, gait instability, generalized weakness, and overall ADL decline as demonstrated by the following impairment level findings: 1. Impaired standing balance 2. Impaired activity tolerance 3. Shortness of breath Impairments are contributing to the following functional limitations: 1. Increased completion time for mobility ADL performance 2. Increased risk for falls 3. Difficulty with managing steps alone safely Patient is assessed as a [id number] low complexity based on the following: History: 72-year-old female with past medical history as indicated above Examination: Demonstrable impairment in strength, balance, and mobility level with underlying impairments and functional limitations as exhibited above Presentation: Stable Decision Makin low complexity Goals: Goals X1 week 1. Bed-Chair independent with no AD 2. Chair-Bed independent with no AD 3. Independent gait on level surface with use of no AD for at least 300 feet without report of pain nor dyspnea 4. Independent stair negotiation while holding onto B rails for at least 3 steps without report of pain nor dyspnea 5. Independent with home exercise program 6. Good static and dynamic standing balance/tolerance Plan of Care/Treatment Plan: 1-2x/day, 7 days/week x 1 week. Plan of care has been reviewed with the ROLL WEIGHER providing the service under Physical Therapy direction. Initiate Physical Therapy intervention for pain management as needed, strengthening, bed mobility, transfers, gait, stairs, balance training, and use of assistive device. DISCHARGE RECOMMENDATIONS: [] Home with no services [] [X] Home with services. Patient will benefit from home health PT services in order to progress mobility level using least restrictive assistive ambulatory device, assess home safety, identify additional equipment needs, and establish a functional maintenance program that will increase ability of patient to remain at home. [] Home with outpatient PT [] [] SNF for continued rehabilitation [] [] Detention Care [] [] SNF versus LTC based on ability to participate and progress [] TREATMENT CODE/TIME: 9716 1 x 27 minutes for 1 unit (10:00-10:27) Thank you for the opportunity to participate in the care of this patient. Adelia Hogan PT, DPT, CLT [facility] [place], [place]
--- NOTE | 2023-04-11 12:32 | CMPROGNOTE_ITS ---
Date of service: 04/11/23 Time of Service: 12:32 Care Management Progress Note Progress Note Text Progress Note Text: S/O: Marcie was sitting up in her chair when CM met with her. She stated that she has filled out her advanced directives, and requested that CM review them with her. CM reviewed the AD's and answered her questions, then witnessed her signing them. CM provided Marcie with copies, at her request, for her family and her PCP office. Marcie stated that she is feeling better now than she was this morning, and has seen improvement since she arrived. She is looking forward to returning home, although she stated that per TEACHER PHYSICALLY IMPAIRED, she is not medically cleared for discharge today. CM will continue to follow. A: Madina is a 72 year old female admitted to [facility] on 04/08/23 for COPD exacerbation. P: Anticipate Madina will be discharged home with no new services when medically cleared. She will follow up with her PCP and plan of care and transport with family. CM will follow and continue to assess for discharge needs. SDOH(Care Management) Screening Will the Patient Participate in the Screening?: Yes Do you worry about having a steady place to live?: no Problems where you live: no known problems In the past 12 months, have you had to go without electric, gas, oil or water in your home?: no Have you or anyone in your house had to go without enough food to eat?: no Has lack of transportation kept you from medical appointments or from doing things needed for daily living?: no Has anyone in your support network made you feel unsafe for any reason?: no
--- NOTE | 2023-04-11 15:05 | PT.INTREAT ---
Date of service: 04/11/23 Time of Service: 15:05 PT Notes Visit Reasons: Copd Exacerbation, Hypoxic Respiratory Failure Inpatient Physical Therapy Treatment Note [facility] Date: 04/11/23 PRECAUTIONS: Fall, standard, activity as tolerated. SUBJECTIVE: Patient reports feeling wiped out from this morning, states that she is not up for another marathon. OBJECTIVE: Sitting up in bedside chair. Agreeable to therapy. ? PAIN: none reported VITALS: monitored by nursing staff.? BED MOBILITY/TRANSFERS? Rolling L/R: not assessed Supine-sit: not assessed ? Sit-supine: not assessed ? Sit-stand: SBA ? Stand-sit: SBA ? Bed-Chair: SBA ? Chair-bed: SBA ? Therapeutic Exercises (32090a5): Direct one-on-one instruction in therapeutic exercises to develop strength, endurance, range of motion and flexibility. ? Exercises ? [] Ambulation ? Assistive Device: none ? Weight bearing: full Assist: SBA, wheelchair follow. ? Distance:? 325 feet. Several standing rests, patient does not report any need to sit. ? Deviation: Patient reports needing to go slowly, does an excellent job pacing herself. Does not become dyspneic during ambulatory effort. Gait pattern largely unremarkable, aside from slow sherine. ? Provided skilled instruction in proper exercise performance Provided skilled manual cues to facilitate proper muscle recruitment and/or form. ASSESSMENT:? Patient tolerates therapy well, returns to rest comfortably in her recliner at close of session. PLAN: Continue global strengthening per plan of care until patient is medically cleared for discharge. TREATMENT CODE/TIME: 38 minutes beginning at 15:05
--- NOTE | 2023-04-11 18:19 | W.PM.PROGNOT ---
Date of Service Date of service: 04/11/23 Time of Service: 10:30 Assessment and Plan Assessment and plan (1) Respiratory failure with hypoxia: Status: Acute Assessment and plan: . Continue scheduled nebs and home inhalers, levofloxacin day 4/7 and prednisone , might need a taper on discharge . (2) Asthma exacerbation in COPD: Status: Acute Assessment and plan: As above (3) Constipation: Status: Acute Assessment and plan: Continue colace (4) GERD (gastroesophageal reflux disease): Status: Chronic Assessment and plan: Continue pantoprazole and PRN Tums ? Mylanta (5) Headache: Status: Acute Assessment and plan: Intermittent at home continue PRN acetaminophen and ibuprofen (6) On deep vein thrombosis (DVT) prophylaxis: Status: Acute Assessment and plan: Continue Enoxaparin D/c TEDS (7) Discharge planning issues: Status: Acute Assessment and plan: Probable discharge to home on 04/12 with no new services once medically stable discussed with Dr. Green Subjective Subjective Interval history since last seen: Patient reports sleeping well, feeling better, but not well enough to go home today. Patient also reports eating and drinking well moving her bowels, voiding without difficulty. Patient denies lightheadedness, change in vision chest pain, nausea vomiting. Exam Narrative Exam Narrative: Constitutional The patient standing in room with PT, stable gait, comfortable and cooperative during the interview. The patient is without acute distress HENMT: Head is atraumatic, normocephalic, no lymphadenopathy. Facial structures with normal appearance Eyes: Well aligned, intact ROM Neck: Normal ROM, no meningeal signs Neuro:alert and oriented to self, person, place, time and situation. No neurological focal deficit, PERRLA Chest:Chest is symmetrical and normal appearance Resp: unlabored breathing, exp. wheezing to upper anterior chest, posterior lungs diminished bilaterally, positive airflow Cardio: regular rhythm, S1, S2, no murmur, capillary refill<3 sec., bilateral radial and dorsalis pedis pulses are positive, palpable GI: Abdomen is not distended, soft and non tender, bowel sounds are present : Negative Costovertebral angle tenderness Back/spine/Pelvis: No back tenderness, normal alignment Integumentary: No skin lesions or rash on exposed skin Extremities: strength 5/5 to bilateral lower and upper extremities Psych: RASS 0, congruent mood and normal affect. Objective Last Vital Signs Temp 36.5 C 04/11/23 15:03 Pulse 82 04/11/23 15:03 Resp 16 04/11/23 16:17 BP 124/76 04/11/23 15:03 Pulse Ox 93 04/11/23 15:03 Laboratory Results - last 24 hr 04/11/23 06:10 WBC 7.15 RBC 4.53 Hgb 12.5 Hct 38.7 MCV 85 MCH 27.6 MCHC 32.3 RDW 13.6 Plt Count 209 MPV 9.7 Immature Gran % 0.6 Neutrophils % 66.9 Lymphocytes % 21.3 Monocytes % 10.8 Eosinophils % 0.1 Basophils % 0.3 Nucleated RBC % 0.0 Absolute Neutrophils 4.79 Absolute Lymphocytes 1.52 Absolute Monocytes 0.77 Absolute Eosinophils 0.01 Absolute Basophils 0.02 Sodium 141 Potassium 3.6 Chloride 103 Carbon Dioxide 33.8 H Anion Gap 4.2 BUN 22 H Creatinine 0.6 Est GFR (CKD-EPI 2020) 95.90 Glucose 96 Calcium 8.7 Time Spent with Patient Time Spent with Patient: >50 minutes Time was spent: preparing to see the patient(eg.review tests), obtaining and/or reviewing separately otained hiistory, ordering medications,tests, procedures, referring, communicating with other health child care education coordinator, indepentently interpreting results, counseling the patient and care coordination
[2023-04-12] VITALS (10 sets, daily range): BP systolic 152–163; BP diastolic 75–84; PULSE 80–113; RESP 2–18; TEMP 36.4–37.1; O2SAT 91–98
[2023-04-12] MEDS: Normal Saline Flush 10 ML SYR IVP ×2 (07:32→21:11)
[2023-04-12] MEDS: predniSONE 20 MG TAB 40 MG PO (07:32)
[2023-04-12] MEDS: Enoxaparin 40 MG/0.4 ML SYR SC (07:32)
[2023-04-12] MEDS: levoFLOXacin 500 MG, levoFLOXacin 250 MG 750 MG PO (07:34)
[2023-04-12] MEDS: Docusate Sodium 100 MG CAP PO ×2 (07:35→21:11)
[2023-04-12] MEDS: Pantoprazole 40 MG TABCR PO (07:35)
[2023-04-12] MEDS: guaiFENesin 600 MG TABCR PO ×2 (07:36→21:11)
[2023-04-12] MEDS: amLODIPine 5 MG TAB PO (07:36)
[2023-04-12] MEDS: Budesonide/Formoterol 160/4.5 6 GM 60 PUFF INH IH ×2 (08:25→21:02)
[2023-04-12] MEDS: Tiotropium Bromide-Respimat 10 PUFF INH 2 PUFF IH (08:25)
[2023-04-12] MEDS: Albuterol/Ipratropium 3 ML UPD VIAL IH ×4 (08:26→21:01)
--- NOTE | 2023-04-12 09:29 | DSE_ITS ---
Date of service: 04/13/23 Time of Service: 09:16 DS: Diagnosis Discharge Diagnosis (1) Respiratory failure with hypoxia: Status: Acute (2) Asthma exacerbation in COPD: Status: Acute (3) Constipation: Status: Acute (4) GERD (gastroesophageal reflux disease): Status: Chronic (5) Headache: Status: Acute Discharge Plan Disposition Patient Disposition: Home Condition: Improving Discharge Details Reason For Visit: Copd Exacerbation, Hypoxic Respiratory Failure Admit Date/Time: 04/08/23 13:25 Admit Provider: Milton Davis Attending Provider: Milton Davis Primary Care Provider: [facility] Course Hospital Course: This 72-year-old female patient with a past medical history of hypertension on norvasc, asthma COPD overlap syndrome currently followed by pulmonology and on home oxygen presented to the ED at [facility] on 04/08/2023 for evaluation of worsening shortness of breath with productive cough x 3 days. Patient reported seeking outpatient medical care on Sunday prior to this visit after which she was placed on oral prednisone and azithromycin, but due to the fact that her symptoms did not improve and worsened the patient seeked emergency care and was brought in by EMS. DuoNebs were administered by EMS which made her initially feel better but was still having significant shortness of breath and diffuse wheezing.She was then transported to the emergency department for further evaluation. In the ED the patient received IV steroids and of breath respiratory treatments. Her workup was negative for concerns of congestive heart failure or pulmonary embolism or the patient was also initiated on levofloxacin. The hospitalist was consulted and the patient was admitted to the medical surgical floor for further evaluation and management of COPD exacerbation in the setting of asthma COPD overlap syndrome and respiratory failure with hypoxia. During her stay, the patient continued to receive levofloxacin and oral prednisone. The patient received her home medicine regimen for her chronic conditions. The patient on 2 l/min of oxygen at home and as per her ambulatory oxymetry testing supplementation increment to 4l/minutes via n.c. was noted and will need this oxygen flow at home.The patient complained of sinus pressure and maxillary sinus tenderness on palpation and yellow colored nasal discahrge; also mentioning that she was on flonase at home. Flonase and nasal saline spray were ordered and to be continued upon discharge. The patient was also receiving pantoprazole and this will be reordered on discharge for a short course without refill, further management to be done as per PCP. The patient will need to follow-up with her primary care provider within 1-2 weeks. The patient mentioned that she has an appointment with her canoe builder, Dr. Mujica in April. The patient will be discharged home on a prednisone taper, oral levoflaxacin, and oral probiotic. Home Meds and New Rx's Prescriptions: New [place] Nasal 0.65 % Aerosol,[place] 2 spray NS QID PRN PRNQty: 44 1RF fluticasone propionate 50 mcg/actuation [place],Suspension 2 spray NS DAILY Qty: 16 0RF prednisone 20 mg Tablet See Rx Instructions .ROUTE .COMPLEX Qty: 15 0RF Rx Instructions: Take prednisone 40 mg orally for the first 3 days, Then take 30 mg daily X3 days Then take 20 mg daily X3 days Then take 10 mg daily X3 days then stop pantoprazole 40 mg Tablet,Delayed Release (Dr/Ec) 40 mg PO DAILY@0730 Qty: 30 0RF calcium carbonate 200 mg calcium (500 mg) Tablet,Chewable 500 mg PO QID PRN PRNQty: 60 0RF Bio-K plus 50 billion cell capsule,delayed release(DR/EC) 1 cap PO DAILY Qty: 3 0RF levofloxacin 750 mg tablet 750 mg PO DAILY Qty: 3 0RF Continued alendronate [Fosamax] 70 mg tablet 70 mg PO QWEEK ipratropium-albuterol 0.5 mg-3 mg(2.5 mg base)/3 mL solution for nebulization 3 ml inhalation QID PRN Qty: 540 6RF guaifenesin 600 mg tablet extended release 12hr 600 mg PO Q12H PRN budesonide-formoterol 160-4.5 mcg/actuation HFA aerosol inhaler 2 puff inhalation BID amlodipine 5 mg tablet 5 mg PO DAILY albuterol sulfate [Ventolin HFA] 90 mcg/actuation HFA aerosol inhaler 2 puff inhalation Q6H PRN (Reason: shortness of breath or wheezing) Qty: 8.5 12RF Spiriva Respimat 2.5 mcg/actuation mist See Rx Instructions .ROUTE .COMPLEX Qty: 4 12RF Dose Instruction: INHALE TWO PUFFS BY MOUTH DAILY Rx Instructions: INHALE TWO PUFFS BY MOUTH DAILY Changed (DME) Oxygen Tank See Rx Instructions .Route Qty: 0 0RF Patient Comments: Patient only using 2L Rx Instructions: As directed, 2 to 4 LPM, BY NASAL CANNULA NEEDED. Discontinued azithromycin 250 mg tablet Patient Comments: as directed by mouth daily for 5 days prednisone 20 mg tablet Patient Comments: take 2 tablets by mouth once daily for 5 days Discharge Instructions Additional Instructions: Your blood work and x-ray did not show concerning findings at this time Stop your azithromycin and take the levofloxacin with your prednisone taper Follow-up with your primary care provider as scheduled If you feel more ill, have worsening shortness of breath, or any symptoms such as severe chest pain return to the emergency department for reevaluation Referrals: Concetta Mujica MD [[facility] STAFF PHYSICIAN] - (F/u within 2 weeks, please ) Monique Clark [Primary Care Provider] - 04/23/23 9:20 am () Activity:: Activity as Tolerated Equipment/Supplies:: Walker Diet:: As Tolerated Discharge Orders Discharge Orders: Discharge Order (Routine); Ordered 04/13/23 Ordered By: Priscilla Patricia DS: Summary Time Spent with Patient providing and/or coordinating discharge services: Greater than 30 minutes Status at Discharge Functional status at discharge: independent ambulation Overall status at discharge: patient is progressing back to baseline Mental Status: mental status grossly normal Speech and Movement: speech and movement normal Mood: congruent mood Affect: normal affect Quality:SDOH Health Related Social Needs: No Data to Display Exam Narrative Exam Narrative: Constitutional The patient sitting in chair comfortable and cooperative and without acute distress HENMT: Facial structures with normal appearance, no further tenderness upon palpation of maxillary sinuses today Eyes: Well aligned, intact ROM Neck: Normal ROM, no meningeal signs Neuro:alert and oriented to self, person, place, time and situation. No neurological focal deficit Resp: Clear breath sounds to anterior chest, posterior lungs clear bilaterally but diminished Cardio: regular rhythm, S1, S2, no murmur GI: Abdomen is not distended, soft and non tender Integumentary: No skin lesions or rash Psych: RASS 0, congruent mood and normal affect. Psych Mental Status: mental status grossly normal Speech and Movement: speech and movement normal Mood: congruent mood Affect: normal affect DS: Data Vitals/I&O Vitals and I&O: Vital Signs Temperature 36.9 C 04/12/23 08:20 Temperature Source Tympanic 04/12/23 08:20 Pulse 84 04/12/23 08:26 Pulse Rhythm Regular 04/12/23 07:59 Pulse 101 H 04/08/23 09:16 Respiratory Rate 17 04/12/23 08:20 Respiratory Effort Normal 04/12/23 07:59 Respiratory Depth Normal 04/12/23 07:59 Respiratory Pattern Normal 04/12/23 07:59 Blood Pressure 152/76 H 04/12/23 08:20 Blood Pressure Mean 94 04/08/23 09:30 Blood Pressure Position Sitting 04/08/23 09:15 Pulse Oximetry 98 04/12/23 08:26 Oxygen Delivery Method Nasal Cannula 04/12/23 08:26 Oxygen Flow Rate 2 04/12/23 08:26 Pain Level 0 04/12/23 08:20 Comment always on 2LPM of O2 04/08/23 09:15 Intake & Output 04/11/23 04/11/23 04/12/23 11:59 23:59 11:59 Intake Total 190 / 380 190 / 380 Output Total 750 / 1750 1000 / 1750 400 / 400 Balance -560 / -1370 -810 / -1370 -400 / -400 Intake: IV 10 Oral 180 / 360 180 / 360 Output: Urine 750 / 1750 1000 / 1750 400 / 400 Other: Urine Color Yellow Yellow Yellow Urine Appearance Clear Clear Clear Urine Odor None Comment pt is using bedside commode, pt prefers not to use purewick Voiding Methods Bedside Commode Toilet Bedside Commode Data Completed and Pending Labs on day of discharge: Preliminary micro results at discharge 04/08/23 10:09 Blood Culture - Preliminary Blood NO GROWTH 72 HOURS 04/08/23 09:59 Blood Culture - Preliminary Blood NO GROWTH 72 HOURS PFSH All Active Problems (Updated 04/12/23 @ 12:11 by Priscilla Patricia APRN) Constipation (Acute) Discharge planning issues (Acute) On deep vein thrombosis (DVT) prophylaxis (Acute) Headache (Acute) GERD (gastroesophageal reflux disease) (Chronic) Asthma exacerbation in COPD (Acute) Respiratory failure with hypoxia (Acute) Asthma-COPD overlap syndrome (Acute) Abnormal chest CT (Acute) Shortness of breath (Acute) Medical History (Updated 04/12/23 @ 12:11 by Priscilla Patricia APRN) Personal history of nicotine dependence Solitary pulmonary nodule Social History (Updated 03/24/22 @ 10:00 by Dara Almanza RN) Smoking/Tobacco Use Status: Former Tobacco Use Smoking risk assessment performed?: Yes Housing: house Do you feel safe at home: Yes Do you feel safe in your relationship?: Yes Time Spent with Patient Time Spent with Patient: >85 minutes Time was spent: preparing to see the patient(eg.review tests), obtaining and/or reviewing separately otained hiistory, ordering medications,tests, procedures, referring, communicating with other health respiratory care practitioner, indepentently interpreting results, counseling the patient and care coordination
[2023-04-12 10:48] LABS: Abs Immature Grans 0.11 10^3/uL (0.0-0.06); Absolute Basophil Count 0.04 10^3/uL (0.0-0.2); Absolute Eosinophil Count 0.03 10^3/uL (0.0-0.7); Absolute Lymphocyte Count 0.74 10^3/uL (1.2-3.4); Absolute Monocyte Count 0.54 10^3/uL (0.1-0.8); Absolute Neutrophil Count 8.79 10^3/uL (1.2-6.7); Basophils % 0.4; Eosinophils % 0.3; HCT 43.5 % (36.0-46.0); HGB 13.9 g/dL (11.2-15.7); Immature Grans % 1.1; Lymphocytes % 7.2; MCH 27.7 pg (27.0-33.0); MCV 87 fL (80-95); MPV 9.1 fL (8.0-11.0); Monocytes % 5.3; Neutrophils % 85.7; Platelet Count 256 10^3/uL (130-400); RBC 5.01 10^6/uL (3.93-5.22); RDW 13.8 % (11.7-14.6); RDW-SD 44.2 fL; WBC 10.25 10^3/uL (4.4-10.8)
[2023-04-12 11:01] LABS: Anion Gap 5.1 mmol/L (3-11); BUN 18 mg/dL (7-18); CO2 34.9 mmol/L (21.0-32.0); CREATININE 0.8 mg/dL (0.55-1.02); Calcium 9.5 mg/dL (8.5-10.1); Chloride 101 mmol/L (98-107); Estimated GFR 78.72 (mL/min/1.73m2); Glucose 93 mg/dL (74-106); Potassium 3.1 mmol/L (3.5-5.1); Sodium 141 mmol/L (136-145)
[2023-04-12] MEDS: Sodium Chloride-Nasal SPRAY-ADULT 44 ML BTL NS ×2 (12:25→23:16)
[2023-04-12] MEDS: Fluticasone NASAL SPRAY 16 GM BTL NS (12:26)
--- NOTE | 2023-04-12 16:53 | PT.INTREAT ---
Date of service: 04/12/23 Time of Service: 11:32 PT Notes Visit Reasons: Copd Exacerbation, Hypoxic Respiratory Failure Inpatient Physical Therapy Treatment Note [facility] Date: 04/12/23 PRECAUTIONS: Fall, standard, activity as tolerated. SUBJECTIVE: Patient reports feeling good today. Excited to go home this afternoon. OBJECTIVE: Sitting up in bedside chair. Agreeable to therapy. ?AFTERNOON: Patient is sitting up in bedside chair, agreeable to therapy. Respiratory therapist Norma also present for SaO2 walk test. ? PAIN: none reported VITALS: Monitored by nursing staff. Monitored by respiratory therapy during walk test. ? BED MOBILITY/TRANSFERS? Rolling L/R: not assessed Supine-sit: not assessed ? Sit-supine: not assessed ? Sit-stand: SBA ? Stand-sit: SBA ? Bed-Chair: SBA ? Chair-bed: SBA ? Therapeutic Exercises ([id number]): Direct one-on-one instruction in therapeutic exercises to develop strength, endurance, range of motion and flexibility. Ambulation ? Assistive Device: none ? Weight bearing: full Assist: SBA ? Distance:? 300 feet AFTERNOON 300 feet ? Deviation: Patient demonstrates excellent slow pacing in the morning, several short standing rests. AFTERNOON: Patient forgets her pacing several times during ambulation, becoming slightly short of breath before reminding herself to slow down. RT Norma reports that patient desats to 85%, rebounds with standing rest. Increases supplemental O2 a couple of liters in the last 30 feet of ambulation. ? Provided skilled instruction in proper exercise performance Provided skilled manual cues to facilitate proper muscle recruitment and/or form. ASSESSMENT:? Patient tolerates therapy well, expresses concern / disappointment about potentially not being ready to go home yet due to increased O2 needs. PLAN: Continue global strengthening per plan of care until patient is medically cleared for discharge. TREATMENT CODE/TIME: 16 minutes beginning at 11:32 and 11 minutes beginning at 13:48 for a total of 27 minutes today.
--- NOTE | 2023-04-12 17:45 | W.PM.PROGNOT ---
Date of Service Date of service: 04/12/23 Time of Service: 17:45 Assessment and Plan Assessment and plan (1) Respiratory failure with hypoxia: Status: Acute Assessment and plan: . Continue scheduled nebs and home inhalers, levofloxacin day 5/7 and prednisone and taper upon discharge . F/u with pulmonology (2) Asthma exacerbation in COPD: Status: Acute Assessment and plan: As above (3) Constipation: Status: Acute Assessment and plan: Continue colace (4) GERD (gastroesophageal reflux disease): Status: Chronic Assessment and plan: Continue pantoprazole and PRN dyspesia meds (5) Headache: Status: Acute Assessment and plan: No further headache today and no sinus tenderness: Nasal spray and flonase resumed, mentioned that she used them at home Intermittent at home continue PRN acetaminophen and ibuprofen (6) On deep vein thrombosis (DVT) prophylaxis: Status: Acute Assessment and plan: On Enoxaparin SC (7) Discharge planning issues: Status: Acute Assessment and plan: Probable discharge to home on 04/13 with no new services once medically stable F/u w PCP and pulmonology discussed with Dr. Green Subjective Subjective Interval history since last seen: Patient reports sleeping well, eating and drinking well and might have been agreable to going home, until learning of new RSV case in her house and noticing her increased need in O2 during ambulation.Patient is agreeable with staying one more night. Patient also reports eating and drinking well moving her bowels, voiding without difficulty. Patient denies chills, fever or night sweat, chest pain, nausea vomiting or dysuria . Exam Narrative Exam Narrative: Constitutional The patient sitting in chair comfortable and cooperative and without acute distress HENMT: Facial structures with normal appearance, no further tenderness upon palpation of maxillary sinuses today when c/t yesterday Eyes: Well aligned, intact ROM Neck: Normal ROM, no meningeal signs Neuro:alert and oriented to self, person, place, time and situation. No neurological focal deficit Resp: minimal exp. wheezing to right upper anterior chest, posterior lungs clear bilaterally Cardio: regular rhythm, S1, S2, no murmur GI: Abdomen is not distended, soft and non tender Integumentary: No skin lesions or rash Psych: RASS 0, congruent mood and normal affect. Objective Last Vital Signs Temp 37.1 C 04/12/23 15:44 Pulse 86 04/12/23 15:44 Resp 17 04/12/23 15:44 BP 152/84 H 04/12/23 15:44 Pulse Ox 94 04/12/23 15:44 Laboratory Results - last 24 hr 04/12/23 10:40 WBC 10.25 RBC 5.01 Hgb 13.9 Hct 43.5 MCV 87 MCH 27.7 MCHC 32.0 RDW 13.8 Plt Count 256 MPV 9.1 Immature Gran % 1.1 Neutrophils % 85.7 Lymphocytes % 7.2 Monocytes % 5.3 Eosinophils % 0.3 Basophils % 0.4 Nucleated RBC % 0.0 Absolute Neutrophils 8.79 H Absolute Lymphocytes 0.74 L Absolute Monocytes 0.54 Absolute Eosinophils 0.03 Absolute Basophils 0.04 Sodium 141 Potassium 3.1 L Chloride 101 Carbon Dioxide 34.9 H Anion Gap 5.1 BUN 18 Creatinine 0.8 Est GFR (CKD-EPI 2020) 78.72 Glucose 93 Calcium 9.5 Time Spent with Patient Time Spent with Patient: >50 minutes Time was spent: preparing to see the patient(eg.review tests), obtaining and/or reviewing separately otained hiistory, ordering medications,tests, procedures, referring, communicating with other health personal care service provider, indepentently interpreting results, counseling the patient and care coordination
--- NOTE | 2023-04-12 18:52 | PDOC.CMPRO ---
Date of service: 04/12/23 Time of Service: 18:53 Care Management Progress Note Progress Note Text Progress Note Text: S/O: Marcie was sitting up in her chair when CM met with her. She stated that she is feeling pretty good today, and thought she may be able to return home. Per provider, her supplemental O2 need increased to 4L with ambulation today; her baseline is 2LO2, so she will remain overnight. Marcie stated that she is ok with that plan, because her daughter just let her know that her grandson was diagnosed with RSV today, and she is at high risk for complications with RSV. She is happy to be staying again tonight, but continues to look forward to returning home. CM will continue to follow. A: Madina is a 72 year old female admitted to [facility] on 04/08/23 for COPD exacerbation. P: Anticipate Madina will be discharged home with no new services when medically cleared. She will follow up with her PCP and plan of care and transport with family. CM will follow and continue to assess for discharge needs. SDOH(Care Management) Screening Will the Patient Participate in the Screening?: Yes Do you worry about having a steady place to live?: no Problems where you live: no known problems In the past 12 months, have you had to go without electric, gas, oil or water in your home?: no Have you or anyone in your house had to go without enough food to eat?: no Has lack of transportation kept you from medical appointments or from doing things needed for daily living?: no Has anyone in your support network made you feel unsafe for any reason?: no
[2023-04-13 07:02] LABS: Abs Immature Grans 0.15 10^3/uL (0.0-0.06); Absolute Basophil Count 0.04 10^3/uL (0.0-0.2); Absolute Eosinophil Count 0.08 10^3/uL (0.0-0.7); Absolute Lymphocyte Count 2.04 10^3/uL (1.2-3.4); Absolute Monocyte Count 0.76 10^3/uL (0.1-0.8); Basophils % 0.5; Eosinophils % 0.9; HGB 12.4 g/dL (11.2-15.7); Immature Grans % 1.8; Lymphocytes % 24.1; MCH 27.7 pg (27.0-33.0); MCHC 31.8 % (32.0-36.0); MCV 87 fL (80-95); MPV 9.5 fL (8.0-11.0); Neutrophils % 63.7; Platelet Count 220 10^3/uL (130-400); RBC 4.48 10^6/uL (3.93-5.22); RDW 13.9 % (11.7-14.6); RDW-SD 45.1 fL; WBC 8.47 10^3/uL (4.4-10.8)
[2023-04-13 07:11] LABS: Anion Gap 8.3 mmol/L (3-11); BUN 20 mg/dL (7-18); CO2 32.7 mmol/L (21.0-32.0); CREATININE 0.7 mg/dL (0.55-1.02); Chloride 103 mmol/L (98-107); Estimated GFR 92.41 (mL/min/1.73m2); Glucose 96 mg/dL (74-106); Potassium 3.6 mmol/L (3.5-5.1); Sodium 144 mmol/L (136-145)
[2023-04-13 07:58] VITALS: BP 161/92; PULSE 77; RESP 16; TEMP 36.6; O2SAT 96
[2023-04-13] MEDS: Tiotropium Bromide-Respimat 10 PUFF INH 2 PUFF IH (08:13)
[2023-04-13 08:14] VITALS: PULSE 80; RESP 9; O2SAT 96
[2023-04-13] MEDS: Albuterol/Ipratropium 3 ML UPD VIAL IH (08:14)
[2023-04-13] MEDS: Budesonide/Formoterol 160/4.5 6 GM 60 PUFF INH IH (08:14)
[2023-04-13] MEDS: Pantoprazole 40 MG TABCR PO (08:43)
[2023-04-13] MEDS: predniSONE 20 MG TAB 40 MG PO (08:43)
[2023-04-13] MEDS: guaiFENesin 600 MG TABCR PO (08:44)
[2023-04-13] MEDS: levoFLOXacin 500 MG, levoFLOXacin 250 MG 750 MG PO (08:45)
[2023-04-13] MEDS: amLODIPine 5 MG TAB PO (08:45)
[2023-04-13] MEDS: Docusate Sodium 100 MG CAP PO (08:45)
[2023-04-13] MEDS: Enoxaparin 40 MG/0.4 ML SYR SC (08:46)
[2023-04-13] MEDS: Normal Saline Flush 10 ML SYR IVP (08:46)
--- NOTE | 2023-04-13 10:43 | PHA.REVIEW2 ---
Pharmacy Admission Review Admission Clinical Review Admission Pharmacy Review: Constipation (Acute) Discharge planning issues (Acute) On deep vein thrombosis (DVT) prophylaxis (Acute) Headache (Acute) Asthma exacerbation in COPD (Acute) Respiratory failure with hypoxia (Acute) hay/grass Allergy (Unknown, Uncoded 12/20/22 13:44) watery eyes, runny nose Resuscitation Status Full Code Height 5 ft 1 in Weight 66.678 kg Pharmacy Admission Review Renal Dosing Renal Dosing: BUN 20 mg/dL (7-18) H 04/13/23 06:20 Creatinine 0.7 mg/dL (0.55-1.02) 04/13/23 06:20 Medications needing adjustments: Reviewed (CrCl 45.09 mL/min) Anticoagulation Anticoagulation: Hgb 12.4 g/dL (11.2-15.7) 04/13/23 06:20 Hct 39.0 % (36.0-46.0) 04/13/23 06:20 Plt Count 220 10^3/uL (130-400) 04/13/23 06:20 Creatinine 0.7 mg/dL (0.55-1.02) 04/13/23 06:20 DVT Prophylaxis: Reviewed Medications: Enoxaparin (40mg q24h) Relevant Labs Relevant Labs: Sodium 144 mmol/L (136-145) 04/13/23 06:20 Potassium 3.6 mmol/L (3.5-5.1) 04/13/23 06:20 Chloride 103 mmol/L (98-107) 04/13/23 06:20 Magnesium 2.0 mg/dL (1.8-2.4) 04/08/23 10:00 Electrolytes, C-Reactive P, ESR: Reviewed (BUN slightly increased from 18 to 20) Cardiac Review Cardiac Review: Troponin I < 50 ng/L (< or =60) 04/08/23 13:16 NT-Pro-B Natriuret Pep 261 pg/mL (<300) 04/08/23 10:00 Blood Pressure 161/92 0758 Blood Pressure 158/76 2321 BP, HR, EF%: Reviewed (BP 161/92, HR WNL) QTc Review QTc: Reviewed (438 from 04/08/23) IV to PO Switch IV Medications: Reviewed Home Meds Home Med List reviewed: Reviewed Relevent Home Meds Not ordered & why?: alendronate (weekly medication - if patient stays for long enough then will notify provider) Current Meds Current Medication Order Review: Reviewed Pharmacy Antibiotic Review Pharmacy Antibiotic Activity: Reviewed, no change Comments: Patient is on levofloxacin 750mg daily, day 6 of 7. Blood cultures show no growth.
[2023-04-13] MEDS: Fluticasone NASAL SPRAY 16 GM BTL NS (10:58)
--- NOTE | 2023-04-13 11:21 | PDOC.CMDIS ---
Date of service: 04/13/23 Time of Service: 11:22 LACE Index Scoring Tool Questions: Length of Stay (in days): 4 - 6 Was the patient admitted via the E.D.?: Yes Comorbidities: Chronic Pulmonary Disease E.D. Visits: 0 Answers: Total Score: 9 Risk of Readmission: Low Risk Care Management Discharge Plan Reason for Hospitalization: Exacerbation of COPD Discharge Plan: Madina will return home with no new services. Her daughter will drive her home via private vehicle. She will follow up with her PCP and discharge plan of care. She is happy to be going home. Patient/Family Education Needs: Review discharge instructions and limitations, discussion of self care needs including ask me three. [facility] Health Related Social Needs: No Data to Display
== END 2023-04-13 14:24 | disposition home or self-care (01) | DRG 190 ==
LOC: ER 12:59 → MS 14:22
PROVIDERS: Internal Medicine; Nurse Practitioner Acute Care; Admitting Provider Family Medicine; Emergency Provider Emergency Medicine; PCP Nurse Practitioner Family; Visit Provider Family Medicine
DX: J44.1 Chronic obstructive pulmonary disease with (acute) exacerbation (principal); J96.01 Acute respiratory failure with hypoxia; R91.1 Solitary pulmonary nodule; R51.9 Headache, unspecified; K21.9 Gastro-esophageal reflux disease without esophagitis; K59.00 Constipation, unspecified; Z99.81 Dependence on supplemental oxygen; Z79.899 Other long term (current) drug therapy; Z87.891 Personal history of nicotine dependence
CPT/HCPCS: 00123; 36415; 80048; 80053; 82805; 84145; 87040; 87635; 93005; 94618; 94640; 96361; 96374; 97110; 97161; 99285; J1650; 71045; 83735; 83880; 84443; 84484; 85025; 93010; 94664; 94667; 94668; 94760; 99222; 99232; 99233; 99239; J1885; J2470; J2930; J7512; J7620

== ENCOUNTER → 2023-04-20 00:12 | Outpatient (CLI) | payer MEDICARE, SELFPAY ==
--- NOTE | 2023-04-20 09:00 | DI.CTLCSR_ITS ---
Exam(s) CT CHEST LUNG CANCER SCREEN EXAM: CT CHEST LUNG CANCER SCREEN CLINICAL HISTORY: Screening for lung cancer,former smoker, z87.891 TECHNIQUE: Imaging Protocol: Axial computed tomography images with coronal and sagittal reformatted images were created and reviewed COMPARISON: CT CT CHEST WO CNTRST from 12/15/[address] CHEST WO from 04/24/2022 FINDINGS: Tracheobronchial tree: Patent where visualized. Pulmonary parenchyma: Moderate centrilobular emphysematous changes are present in the lungs. No foca l consolidating infiltrates. Atelectasis and/or scarring is seen in the lungs. There is again seen scarring in the lateral aspect of the right lower lobe. Lung Nodules: None. Mediastinum and Carin: No dominant adenopathy or fluid collection. The esophagus is unremarkable. Thyroid gland: Unremarkable. Lymph nodes: Unremarkable. Pleura: No effusion or pneumothorax. Heart: The heart is not dilated. Coronary artery calcifications are present. No pericardial effusion . Aorta: Thoracic aorta non-dilated.Atherosclerotic calcification of the thoracic aorta is noted. Upper abdomen: Unremarkable. Soft Tissues: Unremarkable. Bones: Within normal limits. IMPRESSION: No pulmonary nodules. Lung RADS Cat 1 - Negative: No nodules and definitely benign nodules Lung-RADS 1.0 CATEGORIES: Category 0 - Prior chest CT exam(s) being located for comparison. Category 1 - Annual screening in 12 months. No nodules or definitely benign nodules. Category 2 - Annual screening in 12 months. Benign appearance. Nodules with low likelihood of becomin g active cancer. Category 3 - 6-month follow-up. Probably benign. Short-term follow-up suggested. Nodules with low lik elihood of becoming active cancer. Category 4A - 3-month follow-up and CT/PET if >8 mm in size. Suspicious finding. Findings which requi re additional testing. Category 4B - Findings which require additional testing and tissue sampling. Suspicious finding. Category 4X - Category 3 or 4 nodules with additional features or imaging findings that increases the suspicion of malignancy. Modifier S- Potentially clinically significant finding. (Non lung cancer) RADIATION DOSE DELIVERED: 149.83mGy.cm Total DLP 149.83mGy.cmTotal DLP DATA REPOSITORY: All CT scans at this facility are submitted to the National Radiology Data Registry (NRDR) Dose Index Registry (DIR) with the [employer] (A[employer]). RADIATION OPTIMIZATION: All CT scans at this facility use at least one of these dose optimization te chniques: automated exposure control; mA and/or kV adjustment per patient size (includes targeted exa ms where dose is matched to clinical indication); or iterative reconstruction.
== END ==
PROVIDERS: PCP Nurse Practitioner Family; Visit Provider Physician Assistant Surgical
DX: Z87.891 Personal history of nicotine dependence (principal); Z12.2 Encounter for screening for malignant neoplasm of respiratory organs
CPT/HCPCS: 71271

== ENCOUNTER → 2023-04-27 09:18 | Outpatient (BNVA) | payer MEDICARE, MEDICAID, SELFPAY | PROVIDERS: PCP Nurse Practitioner Family; Referring Provider Nurse Practitioner Family; Visit Provider Student in an Organized Health Care Education/Training Program | DX: J44.9 Chronic obstructive pulmonary disease, unspecified (principal); J96.91 Respiratory failure, unspecified with hypoxia | CPT/HCPCS: 99214 ==

== ENCOUNTER → 2023-06-19 10:20 | Outpatient (BNVA) | payer MEDICARE, MEDICAID, SELFPAY | PROVIDERS: PCP Nurse Practitioner Family; Referring Provider Nurse Practitioner Family; Visit Provider Student in an Organized Health Care Education/Training Program | DX: J44.9 Chronic obstructive pulmonary disease, unspecified (principal); J96.91 Respiratory failure, unspecified with hypoxia | CPT/HCPCS: 99214 ==

== ENCOUNTER → 2024-01-01 10:33 | Outpatient (BNVA) | payer MEDICARE, MEDICAID, SELFPAY | PROVIDERS: PCP Nurse Practitioner Family; Referring Provider Nurse Practitioner Family; Visit Provider Physician Assistant Surgical | DX: J44.9 Chronic obstructive pulmonary disease, unspecified (principal); J96.91 Respiratory failure, unspecified with hypoxia | CPT/HCPCS: 99214 ==

== ENCOUNTER 2024-06-06 00:06 | Outpatient (CLI) | payer MEDICARE, MEDICAID, SELFPAY ==
--- NOTE | 2024-06-06 10:40 | DI.CTLCSR_ITS ---
Exam(s) CT CHEST LUNG CANCER SCREEN EXAM: CT CHEST LUNG CANCER SCREEN CLINICAL HISTORY: Screening for lung cancer,FORMER SMOKER, Z87.891 TECHNIQUE: Imaging Protocol: Axial computed tomography images with coronal and sagittal reformatted images were created and reviewed. Low dose screening protocol. COMPARISON: CT CT CHEST LUNG CANCER SCREEN from 04/20/2023 FINDINGS: Tracheobronchial tree: No bronchiectasis or mucus plugging. Mediastinum and Carin: No dominant adenopathy or fluid collection. Small hiatal hernia. Pulmonary parenchyma: No consolidation or dominant measurable mass. Moderate centrilobular emphysemat ous changes. Interstitial changes greater at the upper lobes. Scarring lateral right lower lobe. Lung Nodules: None. Pleura: No effusion. No pneumothorax. Heart: The heart is not dilated. Mild coronary artery calcifications are seen. No pericardial effus ion. Aorta: Thoracic aorta non-dilated.Mild atherosclerotic changes peer Upper abdomen: Unremarkable. Bones: Unremarkable for age. Soft Tissues: Unremarkable. IMPRESSION: No suspicious pulmonary nodules. Lung RADS Cat 1 - Negative: No nodules and definitely benign nodules Lung-RADS 1.0 CATEGORIES: Category 0 - Prior chest CT exam(s) being located for comparison. Category 1 - Annual screening in 12 months. No nodules or definitely benign nodules. Category 2 - Annual screening in 12 months. Benign appearance. Nodules with low likelihood of becomin g active cancer. Category 3 - 6-month follow-up. Probably benign. Short-term follow-up suggested. Nodules with low lik elihood of becoming active cancer. Category 4A - 3-month follow-up and CT/PET if >8 mm in size. Suspicious finding. Findings which requi re additional testing. Category 4B - Findings which require additional testing and tissue sampling. Category 4X - Category 3 or 4 nodules with additional features or imaging findings that increases the suspicion of malignancy. Modifier S- Potentially clinically significant findings (non lung cancer) RADIATION DOSE DELIVERED: !Error Total DLP DATA REPOSITORY: All CT scans at this facility are submitted to the National Radiology Data Registry (NRDR) Dose Index Registry (DIR) with the [employer] ([employer]). RADIATION OPTIMIZATION: All CT scans at this facility use at least one of these dose optimization te chniques: automated exposure control; mA and/or kV adjustment per patient size (includes targeted exa ms where dose is matched to clinical indication); or iterative reconstruction.
== END 2024-06-06 00:26 ==
LOC: DI 00:06
PROVIDERS: PCP Nurse Practitioner Family; Visit Provider Physician Assistant Surgical
DX: Z87.891 Personal history of nicotine dependence (principal); Z12.2 Encounter for screening for malignant neoplasm of respiratory organs
CPT/HCPCS: 71271

== ENCOUNTER → 2024-06-30 10:37 | Outpatient (BNVA) | payer MEDICARE, MEDICAID, SELFPAY | PROVIDERS: PCP Nurse Practitioner Family; Referring Provider Nurse Practitioner Family; Visit Provider Physician Assistant Surgical | DX: J44.9 Chronic obstructive pulmonary disease, unspecified (principal); J96.91 Respiratory failure, unspecified with hypoxia | CPT/HCPCS: 99214; 36415 ==

== ENCOUNTER 2024-06-30 20:48 | Outpatient (REF) | payer MEDICARE, MEDICAID, SELFPAY ==
[2024-07-01 10:35] LABS: Cyclic Citrullinated Peptide <2.5 U/mL (<5.0)
[2024-07-01 15:29] LABS: ANA Interpretation Positive (Negative); ANA Titer Pattern 1:160 Homogeneous
[2024-07-02 18:03] LABS: Myeloperoxidase Ab IgG <0.2 U (>=0.4); Proteinase 3 Ab (PR3) <0.2 U
== END 2024-06-30 20:49 | disposition home or self-care (01) ==
LOC: LBN 20:48
PROVIDERS: PCP Nurse Practitioner Family; Visit Provider Physician Assistant Surgical
DX: J44.9 Chronic obstructive pulmonary disease, unspecified (principal)
CPT/HCPCS: 86200; 83516; 86038

== ENCOUNTER → 2024-12-29 11:09 | Outpatient (BNVA) | payer MEDICARE, MEDICAID, SELFPAY | PROVIDERS: PCP Nurse Practitioner Family; Referring Provider Nurse Practitioner Family; Visit Provider Physician Assistant Surgical | DX: J44.9 Chronic obstructive pulmonary disease, unspecified (principal); J96.91 Respiratory failure, unspecified with hypoxia; J84.9 Interstitial pulmonary disease, unspecified; Z87.891 Personal history of nicotine dependence; Z29.11 Encounter for prophylactic immunotherapy for respiratory syncytial virus (RSV); Z23 Encounter for immunization | CPT/HCPCS: 99214; 90471; 90679; 90653; 36415 ==

== ENCOUNTER 2024-12-29 13:48 | Outpatient (REF) | payer MEDICARE, MEDICAID, SELFPAY ==
[2024-12-30 14:48] LABS: RNP Ab, IgG <6.0 CU (<20.0); Ro60 Ab, IgG <7.0 CU (<20.0); SS-A/Ro, IgG <2.3 CU (<20.0); SS-B (La) Ab, IgG <3.3 CU (<20.0)
[2024-12-31 19:16] LABS: Scl 70 Antibodies, IgG <0.2 U; Sm (Smith) Ab, IgG <0.2 U
== END 2024-12-29 13:49 | disposition home or self-care (01) ==
LOC: LBN 13:48
PROVIDERS: PCP Nurse Practitioner Family; Visit Provider Physician Assistant Surgical
DX: J84.9 Interstitial pulmonary disease, unspecified (principal)
CPT/HCPCS: 83516; 83520; 86235; 86225